=== PATIENT | female | born 1960 | race Caucasian/White ===

== ENCOUNTER → 2018-08-25 | Outpatient (CLI) | payer OTHER ==
[~2018-08-25] MED LIST: CYMBALTA30 MG PO; IBUPROFEN 800800 M1 PO; NORCO 5-325 TA1 EACH PO
== END ==
LOC: M.RAD 15:50
DX: Z12.31 Encounter for screening mammogram for malignant neoplasm of breast (principal)

== ENCOUNTER → 2019-09-14 | Outpatient (CLI) | payer OTHER | LOC: M.RAD 15:38 | DX: Z12.31 Encounter for screening mammogram for malignant neoplasm of breast (principal) ==